=== PATIENT | female | born 1945 | race African-American/Black ===

== ENCOUNTER 2018-06-18 17:02 | Emergency (ER) | payer OTHER ==
[~2018-06-18] VITALS: Ht 162.6 cm; Wt 60.0 kg
[~2018-06-18 17:02] MED LIST: AMLO5TAB4 PO; CLON0.1T PO; metoprolol PO
[2018-06-18] MEDS: ACETAMINOPHEN 500MG TABLET PO ONE (17:26)
[2018-06-18 18:06] LABS: BASOPHILS % 0.6 % (0.0-2.0); EOSINOPHILS % 0.1 % (0.0-5.0); LYMPHOCYTES % 16.9 % (20.0-50.0); MEAN CORPUSCULAR HEMOGLOBIN 29.3 pg (28.0-32.0); MEAN CORPUSCULAR VOLUME 87.6 fL (81.0-99.0); MEAN PLATELET VOLUME 7.5 fl (7.4-10.4); MONOCYTES % 3.4 % (2.0-8.0); PLATELET 424 x1000/uL (130-400); RED BLOOD CELL COUNT 4.11 mill/uL (4.2-5.4); RED CELL DISTRIBUTION WIDTH 14.7 % (11.6-14.6)
[2018-06-18 18:10] LABS: CHLORIDE 98 mEq/L (98-107)
[2018-06-18] MEDS: HYDRALAZINE 20MG/ML VIAL IV ONE (18:52)
[2018-06-18 20:42] LABS: CLARITY URINE CLEAR (CLEAR); COLOR URINE YELLOW (YELLOW); KETONES URINE NEGATIVE (NEGATIVE); LEUKOCYTE ESTERASE URINE TRACE (NEGATIVE); NITRITE URINE NEGATIVE (NEGATIVE); OCCULT BLOOD URINE 2+ (NEGATIVE); PROTEIN URINE 2+ (NEGATIVE); SPECIFIC GRAVITY URINE 1.007 (1.005-1.030); UROBILINOGEN URINE 0.2 E.U./dL (0.2-1.0)
[2018-06-18 22:10] VITALS: BP 161/77
== END 2018-06-18 22:53 | disposition home or self-care (01) ==
LOC: ER 17:02
DX: E86.0 Dehydration (principal); I10 Essential (primary) hypertension; R79.89 Other specified abnormal findings of blood chemistry; E88.09 Other disorders of plasma-protein metabolism, not elsewhere classified; R00.1 Bradycardia, unspecified; M19.90 Unspecified osteoarthritis, unspecified site; Z88.5 Allergy status to narcotic agent; Z79.899 Other long term (current) drug therapy
CPT/HCPCS: 36415; 71045; 80053; 81003; 83880; 84484; 85025; 93005; 96374; 99285; J0360

== ENCOUNTER 2019-01-27 09:41 | Inpatient (IN) | payer OTHER ==
[~2019-01-27] VITALS: Ht 167.6 cm; Wt 68.0 kg
[2019-01-27] MEDS ORDERED: PIPERACILLIN/TAZ 3.375G PREMIX 50 ML IV ONE (10:00)
[2019-01-27] MEDS ORDERED: VANCOMYCIN 1 G PREMIX 200 ML IV ONE (10:00)
[2019-01-27 10:15] LABS: HEMATOCRIT. 33.7 % (36.0-48.0); HEMOGLOBIN. 10.5 g/dL (12.0-16.0); MEAN CORPUSCULAR HEMOGLOBIN 30.7 pg (28.0-32.0); MEAN CORPUSCULAR VOLUME 98.3 fL (81.0-99.0); MEAN PLATELET VOLUME 8.2 fl (7.4-10.4); PLATELET 375 x1000/uL (130-400); RED BLOOD CELL COUNT 3.43 mill/uL (4.2-5.4); RED CELL DISTRIBUTION WIDTH 18.2 % (11.6-14.6)
[2019-01-27 10:20] LABS: BG BASE EXCESS -20.2 mmol/L (-2.0-2.0); BG CARBOXYHEMOGLOBIN 0.2 % (0.5-1.5); BG DEOXYHEMOGLOBIN 4.9 % (0.0-5.0); BG FRACTION INSPIRED OXYGEN 100; BG HCO3 ACT 7.5 mmol/L (22.0-26.0); BG METHEMOGLOBIN 0.2 % (0.0-1.5); BG OXYGEN SATURATION 95.1 % (92.0-98.5); BG OXYHEMOGLOBIN 94.7 % (94.0-97.0); BG PCO2 23.6 mmHg (35.0-45.0); BG PH 7.119 (7.350-7.450); BG PO2 109.1 mmHg (75.0-100.0); BG SAMPLE SITE RIGHT RADIAL; BG TOTAL HEMOGLOBIN 10.9 g/dL (12.0-18.0); BG VENT MODE MASK - NRB
[2019-01-27 10:21] LABS: CHLORIDE 118 mEq/L (98-107)
[2019-01-27 10:22] LABS: INR 1.2; PROTHROMBIN TIME 11.8 sec (9.6-11.0)
[2019-01-27] MEDS ORDERED: SODIUM CHLORIDE 0.9% 1,000 ML IV ONE ×2 (10:32→11:29)
[2019-01-27 10:53] LABS: PLATELET ESTIMATE NORMAL
[2019-01-27 12:01] LABS: BG BASE EXCESS -18.6 mmol/L (-2.0-2.0); BG BILEVEL POS AIRWAY PRESSURE 15/5; BG CARBOXYHEMOGLOBIN 0.4 % (0.5-1.5); BG DEOXYHEMOGLOBIN 14.4 % (0.0-5.0); BG FRACTION INSPIRED OXYGEN 50; BG HCO3 ACT 8.4 mmol/L (22.0-26.0); BG METHEMOGLOBIN 0.4 % (0.0-1.5); BG OXYGEN SATURATION 85.5 % (92.0-98.5); BG OXYHEMOGLOBIN 84.8 % (94.0-97.0); BG PCO2 23.8 mmHg (35.0-45.0); BG PH 7.165 (7.350-7.450); BG SAMPLE SITE RIGHT RADIAL; BG VENT MODE MASK - BIPAP; BG VENT RATE 12 set
[2019-01-27] MEDS ORDERED: PROPOFOL 10MG/ML 100ML 100 ML IV ONE (12:15)
[2019-01-27] MEDS ORDERED: SUCCINYLCHOLINE CHLORIDE 200MG/10ML IV ONE (12:15)
[2019-01-27] MEDS ORDERED: ETOMIDATE 2MG/ML 10ML VIAL IV ONE (12:15)
[2019-01-27 13:19] LABS: CLARITY URINE CLOUDY (CLEAR); COLOR URINE DARK YELLOW (YELLOW); KETONES URINE TRACE (NEGATIVE); LEUKOCYTE ESTERASE URINE TRACE (NEGATIVE); NITRITE URINE NEGATIVE (NEGATIVE); OCCULT BLOOD URINE 2+ (NEGATIVE); PROTEIN URINE 1+ (NEGATIVE); SPECIFIC GRAVITY URINE 1.017 (1.005-1.030)
[2019-01-27] MEDS ORDERED: PROPOFOL 10MG/ML 100ML 100 ML IV PRN (13:45)
[2019-01-27] MEDS ORDERED: FUROSEMIDE 40MG/4ML VIAL IVP NR (14:00)
[2019-01-27] MEDS ORDERED: SODIUM BICARBONATE 8.4% 1 MEQ/ML 50ML SYR IV SCH (14:15)
[2019-01-27] MEDS ORDERED: PIPERACILLIN/TAZ 3.375G PREMIX 50 ML IV SCH (14:15)
[2019-01-27] MEDS: PANTOPRAZOLE SODIUM 40 MG/VIAL IV SCH (14:44)
[2019-01-27] MEDS ORDERED: DEXT 5%/0.45% NACL 1000ML 1,000 ML IV SCH (14:45)
[2019-01-27] MEDS ORDERED: GUAIFENESIN 200MG/10ML SUGAR FREE UDC PO PRN (14:45)
[2019-01-27] MEDS ORDERED: CLONIDINE 0.1MG TABLET PO PRN (14:45)
[2019-01-27] MEDS ORDERED: ACETAMINOPHEN 325MG TABLET PO PRN (14:45)
[2019-01-27] MEDS ORDERED: MAGNESIUM/ALUMINUM HYDROXIDE/SIMETHICONE 30ML UDC PO PRN (14:45)
[2019-01-27] MEDS ORDERED: ONDANSETRON HCL 4MG/2ML INJ IV PRN (14:45)
[2019-01-27] MEDS ORDERED: DOCUSATE SODIUM 100MG CAPSULE PO PRN (14:45)
[2019-01-27] MEDS ORDERED: SODIUM BICARBONATE 8.4% 1 MEQ/ML 50ML SYR IV NR (15:00)
[2019-01-27] MEDS ORDERED: ALBUMIN HUMAN 25GM/100ML (25%) IV NR (15:15)
[2019-01-27 15:18] LABS: BG BASE EXCESS -12.5 mmol/L (-2.0-2.0); BG CARBOXYHEMOGLOBIN 0.3 % (0.5-1.5); BG DEOXYHEMOGLOBIN 2.2 % (0.0-5.0); BG FRACTION INSPIRED OXYGEN 100; BG HCO3 ACT 12.7 mmol/L (22.0-26.0); BG METHEMOGLOBIN 0.2 % (0.0-1.5); BG OXYGEN SATURATION 97.8 % (92.0-98.5); BG OXYHEMOGLOBIN 97.3 % (94.0-97.0); BG PCO2 27.5 mmHg (35.0-45.0); BG PH 7.284 (7.350-7.450); BG PO2 133.4 mmHg (75.0-100.0); BG SAMPLE SITE RIGHT RADIAL; BG TIDAL VOLUME(mL) 450 mL; BG TOTAL HEMOGLOBIN 10.5 g/dL (12.0-18.0); BG VENT MODE VENT - A/C; BG VENT RATE 14 set
[2019-01-27 15:30] VITALS: BP 100/50
[2019-01-27] MEDS ORDERED: OMEP20CA10 MT (15:51)
[2019-01-27] MEDS ORDERED: HYDR2TAB7 PO (15:51)
[2019-01-27] MEDS ORDERED: DIPH25TA23 PO (15:51)
[2019-01-27] MEDS ORDERED: ALLO100T PO (15:51)
[2019-01-27 15:56] LABS: T4 FREE 1.4 ng/dL (0.76-1.46)
[2019-01-27 16:00] VITALS: BP 120/50
[2019-01-27 16:21] VITALS: BP 90/50
[2019-01-27 16:25] LABS: VITAMIN B12 SERUM >2000 pg/mL pg/mL (211-911)
[2019-01-27] MEDS ORDERED: SODIUM BICARBONATE 50 MEQ in DEXTROSE 5% WATER 1,000 ML IV ONE (16:30)
[2019-01-27] MEDS: IPRATROPIUM/ALBUTEROL 0.5-3(2.5)MG/3ML NEB HHN SCH ×2 (17:00→21:07)
[2019-01-27 17:32] VITALS: BP 112/60
[2019-01-27] MEDS: ENOXAPARIN 30MG/0.3ML SYR SUBCUT SCH (17:32)
[2019-01-27] MEDS: PIPERACILLIN/TAZ 2.25G PREMIX 50 ML IV SCH (17:32)
[2019-01-27 17:42] LABS: *AMPHETAMINES SCREEN URINE NEGATIVE (NEGATIVE); *BARBITURATES SCREEN URINE NEGATIVE (NEGATIVE); *BENZODIAZEPINES SCREEN URINE NEGATIVE (NEGATIVE)
[2019-01-27 17:43] LABS: *COCAINE SCREEN URINE NEGATIVE (NEGATIVE); CANNABINOID URINE SCREEN NEGATIVE (NEGATIVE); METHADONE URINE SCREEN NEGATIVE (NEGATIVE); OPIATES URINE SCREEN NEGATIVE (NEGATIVE); PHENCYCLIDINE URINE SCREEN NEGATIVE (NEGATIVE)
[2019-01-27 18:00] VITALS: BP 120/60
[2019-01-27] MEDS: MIDAZOLAM HCL 50 MG in DEXTROSE 5% WATER 40 ML IV PRN (21:01)
[2019-01-27] MEDS: LACTULOSE 20G/30ML UDC PO SCH (21:50)
[2019-01-27] MEDS ORDERED: VANCOMYCIN 750 MG PREMIX 150 ML IV SCH (22:00)
[2019-01-27] MEDS: FENTANYL CITRATE/PF 500 MCG in SODIUM CHLORIDE 0.9% 40 ML IV PRN (22:22)
[2019-01-28] VITALS (31 sets, daily range): BP systolic 87–121; BP diastolic 38–72
[2019-01-28] MEDS: IPRATROPIUM/ALBUTEROL 0.5-3(2.5)MG/3ML NEB HHN SCH ×6 (00:34→20:39)
[2019-01-28] MEDS: PIPERACILLIN/TAZ 2.25G PREMIX 50 ML IV SCH ×4 (00:58→17:00)
[2019-01-28] MEDS: MIDAZOLAM HCL 50 MG in DEXTROSE 5% WATER 40 ML IV PRN (04:36)
[2019-01-28 05:50] LABS: BASOPHILS % 0.8 % (0.0-2.0); EOSINOPHILS % 0.4 % (0.0-5.0); HEMATOCRIT. 27.2 % (36.0-48.0); HEMOGLOBIN. 8.6 g/dL (12.0-16.0); LYMPHOCYTES % 13.4 % (20.0-50.0); MEAN CORPUSCULAR VOLUME 98.1 fL (81.0-99.0); MEAN PLATELET VOLUME 9.6 fl (7.4-10.4); MONOCYTES % 2.5 % (2.0-8.0); NEUTROPHILS % 82.9 % (40.0-76.0); PLATELET 161 x1000/uL (130-400); RED BLOOD CELL COUNT 2.77 mill/uL (4.2-5.4); RED CELL DISTRIBUTION WIDTH 17.5 % (11.6-14.6)
[2019-01-28 05:59] LABS: CHLORIDE 116 mEq/L (98-107)
[2019-01-28 06:13] LABS: PHOSPHORUS 5.1 mg/dL (2.5-4.9)
[2019-01-28] MEDS: LACTULOSE 20G/30ML UDC PO SCH ×3 (06:46→21:26)
[2019-01-28 08:21] LABS: BG BASE EXCESS -7.8 mmol/L (-2.0-2.0); BG CARBOXYHEMOGLOBIN 0.3 % (0.5-1.5); BG DEOXYHEMOGLOBIN 10.1 % (0.0-5.0); BG FRACTION INSPIRED OXYGEN 80; BG HCO3 ACT 16.5 mmol/L (22.0-26.0); BG METHEMOGLOBIN 0.1 % (0.0-1.5); BG OXYGEN SATURATION 89.9 % (92.0-98.5); BG OXYHEMOGLOBIN 89.5 % (94.0-97.0); BG PCO2 29.4 mmHg (35.0-45.0); BG PH 7.367 (7.350-7.450); BG SAMPLE SITE RIGHT RADIAL; BG TIDAL VOLUME(mL) 450 mL; BG TOTAL HEMOGLOBIN 9.3 g/dL (12.0-18.0); BG VENT MODE VENT - A/C; BG VENT RATE 18 set
[2019-01-28] MEDS ORDERED: FUROSEMIDE 100MG/10ML VIAL IVP SCH (08:45)
[2019-01-28] MEDS ORDERED: ALBUMIN HUMAN 25GM/100ML (25%) IV SCH (08:45)
[2019-01-28] MEDS ORDERED: PANTOPRAZOLE SODIUM 40 MG/VIAL IV SCH (09:00)
[2019-01-28] MEDS: CITRIC ACID/SODIUM CITRATE SOLN 30ML UDC NG SCH ×4 (09:00→16:53)
[2019-01-28] MEDS ORDERED: FENTANYL CITRATE/PF 500 MCG in SODIUM CHLORIDE 0.9% 40 ML IV PRN (09:15)
[2019-01-28] MEDS: FENTANYL CITRATE/PF 500 MCG in SODIUM CHLORIDE 0.9% 40 ML IV PRN (09:33)
[2019-01-28] MEDS ORDERED: MAGNESIUM 2 G PREMIX 50 ML IV SCH (10:00)
[2019-01-28] MEDS: PANTOPRAZOLE SODIUM 40 MG/VIAL IV SCH (10:00)
[2019-01-28] MEDS: ENOXAPARIN 30MG/0.3ML SYR SUBCUT SCH (16:54)
[2019-01-28] MEDS: SODIUM BICARBONATE 50 MEQ in DEXTROSE 5% WATER 950 ML IV SCH (21:26)
[2019-01-29] VITALS (50 sets, daily range): BP systolic 58–131; BP diastolic 22–70
[2019-01-29] MEDS: PIPERACILLIN/TAZ 2.25G PREMIX 50 ML IV SCH ×4 (00:15→17:03)
[2019-01-29] MEDS: IPRATROPIUM/ALBUTEROL 0.5-3(2.5)MG/3ML NEB HHN SCH ×6 (00:54→20:29)
[2019-01-29] MEDS: LACTULOSE 20G/30ML UDC PO SCH ×3 (06:15→21:45)
[2019-01-29 06:22] LABS: CHLORIDE 115 mEq/L (98-107)
[2019-01-29 06:43] LABS: PHOSPHORUS 4.8 mg/dL (2.5-4.9)
[2019-01-29 06:44] LABS: CREATINE KINASE 156 IU/L (26-192)
[2019-01-29] MEDS ORDERED: ALBUMIN HUMAN 25GM/100ML (25%) IV NR (07:45)
[2019-01-29] MEDS ORDERED: FUROSEMIDE 100MG/10ML VIAL IVP NR (07:45)
[2019-01-29] MEDS: CITRIC ACID/SODIUM CITRATE SOLN 30ML UDC NG SCH ×3 (08:16→17:03)
[2019-01-29] MEDS: PANTOPRAZOLE SODIUM 40 MG/VIAL IV SCH (08:16)
[2019-01-29 08:28] LABS: BG BASE EXCESS -4.5 mmol/L (-2.0-2.0); BG CARBOXYHEMOGLOBIN 0.8 % (0.5-1.5); BG DEOXYHEMOGLOBIN 10.6 % (0.0-5.0); BG FRACTION INSPIRED OXYGEN 65; BG HCO3 ACT 20.3 mmol/L (22.0-26.0); BG METHEMOGLOBIN 0.4 % (0.0-1.5); BG OXYGEN SATURATION 89.3 % (92.0-98.5); BG OXYHEMOGLOBIN 88.2 % (94.0-97.0); BG PH 7.369 (7.350-7.450); BG SAMPLE SITE RIGHT RADIAL; BG TIDAL VOLUME(mL) 450 mL; BG TOTAL HEMOGLOBIN 7.9 g/dL (12.0-18.0); BG VENT MODE VENT - A/C; BG VENT RATE 18 set
[2019-01-29 09:05] LABS: BASOPHILS % 1.2 % (0.0-2.0); EOSINOPHILS % 0.8 % (0.0-5.0); HEMATOCRIT. 25.5 % (36.0-48.0); HEMOGLOBIN. 8.2 g/dL (12.0-16.0); MEAN CORPUSCULAR HEMOGLOBIN 30.7 pg (28.0-32.0); MEAN PLATELET VOLUME 8.5 fl (7.4-10.4); MONOCYTES % 2.5 % (2.0-8.0); NEUTROPHILS % 85.5 % (40.0-76.0); PLATELET 80 x1000/uL (130-400); RED BLOOD CELL COUNT 2.66 mill/uL (4.2-5.4); RED CELL DISTRIBUTION WIDTH 18.1 % (11.6-14.6)
[2019-01-29] MEDS: SODIUM BICARBONATE 50 MEQ in DEXTROSE 5% WATER 950 ML IV SCH (10:01)
[2019-01-29] MEDS: VANCOMYCIN 1 G PREMIX 200 ML IV SCH (13:05)
[2019-01-29] MEDS: METOCLOPRAMIDE HCL 10MG/2ML VIAL IV SCH ×2 (13:28→17:03)
[2019-01-29] MEDS: ENOXAPARIN 30MG/0.3ML SYR SUBCUT SCH (16:58)
[2019-01-29] MEDS: CEFEPIME 1,000 MG in DEXTROSE 5% WATER 50 ML IV SCH (21:45)
[2019-01-30] VITALS (81 sets, daily range): BP systolic 86–130; BP diastolic 55–77
[2019-01-30] MEDS: IPRATROPIUM/ALBUTEROL 0.5-3(2.5)MG/3ML NEB HHN SCH ×6 (00:21→20:09)
[2019-01-30] MEDS: METOCLOPRAMIDE HCL 10MG/2ML VIAL IV SCH ×4 (00:57→17:48)
[2019-01-30 05:46] LABS: BASOPHILS % 0.8 % (0.0-2.0); EOSINOPHILS % 0.7 % (0.0-5.0); HEMATOCRIT. 28.7 % (36.0-48.0); HEMOGLOBIN. 9.1 g/dL (12.0-16.0); LYMPHOCYTES % 8.1 % (20.0-50.0); MEAN CORPUSCULAR HEMOGLOBIN 30.3 pg (28.0-32.0); MEAN CORPUSCULAR VOLUME 95.1 fL (81.0-99.0); MEAN PLATELET VOLUME 9.7 fl (7.4-10.4); MONOCYTES % 3.1 % (2.0-8.0); NEUTROPHILS % 87.3 % (40.0-76.0); PLATELET 64 x1000/uL (130-400); RED BLOOD CELL COUNT 3.02 mill/uL (4.2-5.4); RED CELL DISTRIBUTION WIDTH 17.8 % (11.6-14.6)
[2019-01-30 05:49] LABS: PHOSPHORUS 4.4 mg/dL (2.5-4.9)
[2019-01-30] MEDS: LACTULOSE 20G/30ML UDC PO SCH ×3 (06:02→22:00)
[2019-01-30] MEDS: SODIUM BICARBONATE 50 MEQ in DEXTROSE 5% WATER 950 ML IV SCH (06:59)
[2019-01-30] MEDS ORDERED: FUROSEMIDE 40MG/4ML VIAL IVP NR (08:45)
[2019-01-30] MEDS ORDERED: ALBUMIN HUMAN 25GM/100ML (25%) IV NR (08:45)
[2019-01-30] MEDS ORDERED: POTASSIUM CHLORIDE INJ 40 MEQ in DEXT 5% WATER 250 ML IV SCH (09:00)
[2019-01-30 09:22] LABS: BG BASE EXCESS -2.4 mmol/L (-2.0-2.0); BG CARBOXYHEMOGLOBIN 0.5 % (0.5-1.5); BG DEOXYHEMOGLOBIN 6.4 % (0.0-5.0); BG HCO3 ACT 21.1 mmol/L (22.0-26.0); BG METHEMOGLOBIN 0.2 % (0.0-1.5); BG OXYGEN SATURATION 93.6 % (92.0-98.5); BG OXYHEMOGLOBIN 92.9 % (94.0-97.0); BG PCO2 31.2 mmHg (35.0-45.0); BG PH 7.448 (7.350-7.450); BG PO2 70.4 mmHg (75.0-100.0); BG SAMPLE SITE RIGHT RADIAL; BG TIDAL VOLUME(mL) 450 mL; BG TOTAL HEMOGLOBIN 8.6 g/dL (12.0-18.0); BG VENT MODE VENT - A/C; BG VENT RATE 18 set
[2019-01-30] MEDS: PANTOPRAZOLE SODIUM 40 MG/VIAL IV SCH (09:34)
[2019-01-30] MEDS: CITRIC ACID/SODIUM CITRATE SOLN 30ML UDC NG SCH ×3 (09:34→17:48)
[2019-01-30] MEDS ORDERED: KCL 20MEQ/100ML PREMIX 100 ML IV NR (15:00)
[2019-01-30] MEDS: ENOXAPARIN 30MG/0.3ML SYR SUBCUT SCH (16:00)
[2019-01-30] MEDS: CEFEPIME 1,000 MG in DEXTROSE 5% WATER 50 ML IV SCH (21:58)
[2019-01-31] VITALS (48 sets, daily range): BP systolic 102–149; BP diastolic 63–97
[2019-01-31] MEDS: VANCOMYCIN 1 G PREMIX 200 ML IV SCH (00:18)
[2019-01-31] MEDS: IPRATROPIUM/ALBUTEROL 0.5-3(2.5)MG/3ML NEB HHN SCH ×7 (00:52→23:46)
[2019-01-31 05:51] LABS: BASOPHILS % 0.7 % (0.0-2.0); EOSINOPHILS % 0.9 % (0.0-5.0); HEMATOCRIT. 27.2 % (36.0-48.0); HEMOGLOBIN. 8.4 g/dL (12.0-16.0); LYMPHOCYTES % 12.9 % (20.0-50.0); MEAN CORPUSCULAR HEMOGLOBIN 30.8 pg (28.0-32.0); MEAN CORPUSCULAR VOLUME 99.2 fL (81.0-99.0); MEAN PLATELET VOLUME 10.8 fl (7.4-10.4); NEUTROPHILS % 80.5 % (40.0-76.0); RED BLOOD CELL COUNT 2.74 mill/uL (4.2-5.4); RED CELL DISTRIBUTION WIDTH 18.3 % (11.6-14.6)
[2019-01-31] MEDS: METOCLOPRAMIDE HCL 10MG/2ML VIAL IV SCH ×4 (05:59→17:41)
[2019-01-31] MEDS: LACTULOSE 20G/30ML UDC PO SCH ×3 (06:00→22:55)
[2019-01-31] MEDS ORDERED: ALBUMIN HUMAN 25GM/100ML (25%) IV SCH (08:00)
[2019-01-31] MEDS ORDERED: FUROSEMIDE 100MG/10ML VIAL IVP SCH (08:10)
[2019-01-31] MEDS: PANTOPRAZOLE SODIUM 40 MG/VIAL IV SCH (08:32)
[2019-01-31] MEDS: CITRIC ACID/SODIUM CITRATE SOLN 30ML UDC NG SCH ×3 (08:32→17:40)
[2019-01-31] MEDS ORDERED: POTASSIUM CHLORIDE INJ 40 MEQ in DEXT 5% WATER 250 ML IV SCH (09:00)
[2019-01-31 09:18] LABS: BG BASE EXCESS -1.4 mmol/L (-2.0-2.0); BG CARBOXYHEMOGLOBIN 0.3 % (0.5-1.5); BG DEOXYHEMOGLOBIN 5.2 % (0.0-5.0); BG FRACTION INSPIRED OXYGEN 65; BG HCO3 ACT 22.3 mmol/L (22.0-26.0); BG METHEMOGLOBIN 0.3 % (0.0-1.5); BG OXYGEN SATURATION 94.8 % (92.0-98.5); BG OXYHEMOGLOBIN 94.2 % (94.0-97.0); BG PCO2 33.5 mmHg (35.0-45.0); BG PH 7.441 (7.350-7.450); BG PO2 77.5 mmHg (75.0-100.0); BG SAMPLE SITE RIGHT RADIAL; BG TIDAL VOLUME(mL) 450 mL; BG TOTAL HEMOGLOBIN 9.4 g/dL (12.0-18.0); BG VENT MODE VENT - A/C; BG VENT RATE 16 set
[2019-01-31 09:30] LABS: PLATELET 40 x1000/uL (130-400)
[2019-01-31] MEDS: METRONIDAZOLE 500 MG PREMIX 100 ML IV SCH ×2 (10:22→18:17)
[2019-01-31] MEDS: BLOOD SUGAR DIAGNOSTIC STRIP TEST SCH ×2 (12:13→17:41)
[2019-01-31] MEDS ORDERED: DEXTROSE 50% WATER 50ML SYRINGE IV PRN (12:15)
[2019-01-31] MEDS: INSULIN LISPRO (LOW DOSE) 100 UNITS/ML SUBCUT SCH ×2 (12:30→18:55)
[2019-01-31 13:15] LABS: HEPATITIS B SURFACE ANTIGEN NEGATIVE
[2019-01-31 13:43] LABS: HEPATITIS A AB IGM NEGATIVE (NEGATIVE)
[2019-01-31] MEDS: CEFEPIME 1,000 MG in DEXTROSE 5% WATER 50 ML IV SCH (21:00)
[2019-02-01] VITALS (62 sets, daily range): BP systolic 117–162; BP diastolic 66–103
[2019-02-01] MEDS: METOCLOPRAMIDE HCL 10MG/2ML VIAL IV SCH ×5 (00:17→23:10)
[2019-02-01] MEDS: INSULIN LISPRO (LOW DOSE) 100 UNITS/ML SUBCUT SCH ×5 (00:33→23:10)
[2019-02-01] MEDS: BLOOD SUGAR DIAGNOSTIC STRIP TEST SCH ×5 (00:42→23:10)
[2019-02-01] MEDS: METRONIDAZOLE 500 MG PREMIX 100 ML IV SCH ×3 (01:57→18:30)
[2019-02-01] MEDS: IPRATROPIUM/ALBUTEROL 0.5-3(2.5)MG/3ML NEB HHN SCH ×6 (03:55→23:57)
[2019-02-01 04:22] LABS: HIV SCREEN 4G Non Reactive (Non Reactive)
[2019-02-01] MEDS: LACTULOSE 20G/30ML UDC PO SCH ×3 (05:10→21:46)
[2019-02-01] MEDS ORDERED: FUROSEMIDE 100MG/10ML VIAL IVP SCH (08:00)
[2019-02-01 08:07] LABS: BG BASE EXCESS 3.6 mmol/L (-2.0-2.0); BG CARBOXYHEMOGLOBIN 0.3 % (0.5-1.5); BG DEOXYHEMOGLOBIN 7.1 % (0.0-5.0); BG FRACTION INSPIRED OXYGEN 65; BG HCO3 ACT 26.5 mmol/L (22.0-26.0); BG METHEMOGLOBIN 1.2 % (0.0-1.5); BG OXYGEN SATURATION 92.8 % (92.0-98.5); BG OXYHEMOGLOBIN 91.4 % (94.0-97.0); BG PCO2 33.5 mmHg (35.0-45.0); BG PH 7.516 (7.350-7.450); BG PO2 67.6 mmHg (75.0-100.0); BG SAMPLE SITE RIGHT RADIAL; BG TIDAL VOLUME(mL) 450 mL; BG TOTAL HEMOGLOBIN 9.9 g/dL (12.0-18.0); BG VENT MODE VENT - A/C; BG VENT RATE 16 set
[2019-02-01] MEDS ORDERED: POTASSIUM PHOS,M-BASIC-D-BASIC 15 MMOL in DEXT 5% WATER 245 ML IV SCH (09:00)
[2019-02-01 09:16] LABS: BASOPHILS % 1.4 % (0.0-2.0); HEMATOCRIT. 27.6 % (36.0-48.0); HEMOGLOBIN. 8.9 g/dL (12.0-16.0); LYMPHOCYTES % 12.3 % (20.0-50.0); MEAN CORPUSCULAR HEMOGLOBIN 30.3 pg (28.0-32.0); MEAN CORPUSCULAR VOLUME 94.2 fL (81.0-99.0); MEAN PLATELET VOLUME 9.1 fl (7.4-10.4); NEUTROPHILS % 79.3 % (40.0-76.0); RED BLOOD CELL COUNT 2.93 mill/uL (4.2-5.4)
[2019-02-01 09:22] LABS: PLATELET 30 x1000/uL (130-400)
[2019-02-01] MEDS: CITRIC ACID/SODIUM CITRATE SOLN 30ML UDC NG SCH ×3 (09:25→16:20)
[2019-02-01] MEDS: DEXTROSE 5% WATER 1,000 ML IV SCH (09:50)
[2019-02-01] MEDS: PANTOPRAZOLE SODIUM 40 MG/VIAL IV SCH (09:51)
[2019-02-01] MEDS: VANCOMYCIN 750 MG PREMIX 150 ML IV SCH (14:02)
[2019-02-01] MEDS ORDERED: POTASSIUM CHLORIDE INJ 40 MEQ in DEXT 5% WATER 250 ML IV SCH (15:00)
[2019-02-01] MEDS: CEFEPIME 1,000 MG in DEXTROSE 5% WATER 50 ML IV SCH (21:01)
[2019-02-02] VITALS (92 sets, daily range): BP systolic 88–141; BP diastolic 47–91
[2019-02-02] MEDS: METRONIDAZOLE 500 MG PREMIX 100 ML IV SCH ×3 (01:47→18:28)
[2019-02-02] MEDS: IPRATROPIUM/ALBUTEROL 0.5-3(2.5)MG/3ML NEB HHN SCH ×5 (03:38→20:20)
[2019-02-02 04:54] LABS: BASOPHILS % 1.2 % (0.0-2.0); EOSINOPHILS % 0.9 % (0.0-5.0); HEMATOCRIT. 28.8 % (36.0-48.0); HEMOGLOBIN. 9.1 g/dL (12.0-16.0); LYMPHOCYTES % 12.4 % (20.0-50.0); MEAN CORPUSCULAR HEMOGLOBIN 30.3 pg (28.0-32.0); MEAN CORPUSCULAR VOLUME 95.5 fL (81.0-99.0); MONOCYTES % 6.3 % (2.0-8.0); NEUTROPHILS % 79.2 % (40.0-76.0); RED BLOOD CELL COUNT 3.01 mill/uL (4.2-5.4); RED CELL DISTRIBUTION WIDTH 18.1 % (11.6-14.6)
[2019-02-02] MEDS: DEXTROSE 5% WATER 1,000 ML IV SCH (05:05)
[2019-02-02 05:12] LABS: PHOSPHORUS 3.1 mg/dL (2.5-4.9)
[2019-02-02] MEDS: INSULIN LISPRO (LOW DOSE) 100 UNITS/ML SUBCUT SCH ×3 (05:18→17:25)
[2019-02-02] MEDS: BLOOD SUGAR DIAGNOSTIC STRIP TEST SCH ×3 (05:18→17:25)
[2019-02-02] MEDS: LACTULOSE 20G/30ML UDC PO SCH ×3 (05:18→22:03)
[2019-02-02] MEDS: METOCLOPRAMIDE HCL 10MG/2ML VIAL IV SCH ×3 (05:18→17:25)
[2019-02-02] MEDS ORDERED: FUROSEMIDE 100MG/10ML VIAL IVP SCH (07:30)
[2019-02-02 07:31] LABS: PLATELET 32 x1000/uL (130-400)
[2019-02-02] MEDS: CITRIC ACID/SODIUM CITRATE SOLN 30ML UDC NG SCH ×3 (08:08→17:25)
[2019-02-02] MEDS: PANTOPRAZOLE SODIUM 40 MG/VIAL IV SCH (08:08)
[2019-02-02 08:46] LABS: BG BASE EXCESS -0.2 mmol/L (-2.0-2.0); BG CARBOXYHEMOGLOBIN 0.2 % (0.5-1.5); BG DEOXYHEMOGLOBIN 7.1 % (0.0-5.0); BG FRACTION INSPIRED OXYGEN 65; BG HCO3 ACT 23.2 mmol/L (22.0-26.0); BG METHEMOGLOBIN 0.1 % (0.0-1.5); BG OXYGEN SATURATION 92.9 % (92.0-98.5); BG OXYHEMOGLOBIN 92.6 % (94.0-97.0); BG PCO2 32.7 mmHg (35.0-45.0); BG PH 7.468 (7.350-7.450); BG SAMPLE SITE RIGHT RADIAL; BG TIDAL VOLUME(mL) 450 mL; BG TOTAL HEMOGLOBIN 9.6 g/dL (12.0-18.0); BG VENT MODE VENT - A/C; BG VENT RATE 16 set
[2019-02-02] MEDS: FENTANYL CITRATE/PF 500 MCG in SODIUM CHLORIDE 0.9% 40 ML IV PRN ×2 (12:08→23:06)
[2019-02-02] MEDS: CEFEPIME 1,000 MG in DEXTROSE 5% WATER 50 ML IV SCH (21:01)
[2019-02-02] MEDS: VANCOMYCIN 750 MG PREMIX 150 ML IV SCH (22:03)
[2019-02-03] VITALS (95 sets, daily range): BP systolic 79–125; BP diastolic 43–78
[2019-02-03] MEDS: METOCLOPRAMIDE HCL 10MG/2ML VIAL IV SCH ×4 (00:08→18:03)
[2019-02-03] MEDS: BLOOD SUGAR DIAGNOSTIC STRIP TEST SCH ×4 (00:08→18:02)
[2019-02-03] MEDS: INSULIN LISPRO (LOW DOSE) 100 UNITS/ML SUBCUT SCH ×4 (00:09→18:33)
[2019-02-03] MEDS: PHENYLEPHRINE 40 MG in DEXT 5% WATER 246 ML IV PRN (01:37)
[2019-02-03] MEDS: METRONIDAZOLE 500 MG PREMIX 100 ML IV SCH ×3 (02:04→18:04)
[2019-02-03] MEDS: DEXTROSE 5% WATER 1,000 ML IV SCH (03:07)
[2019-02-03] MEDS: IPRATROPIUM/ALBUTEROL 0.5-3(2.5)MG/3ML NEB HHN SCH ×5 (05:07→21:03)
[2019-02-03] MEDS: LACTULOSE 20G/30ML UDC PO SCH ×3 (05:23→21:55)
[2019-02-03 05:42] LABS: BASOPHILS % 1.2 % (0.0-2.0); EOSINOPHILS % 1.7 % (0.0-5.0); HEMATOCRIT. 26.6 % (36.0-48.0); HEMOGLOBIN. 8.3 g/dL (12.0-16.0); LYMPHOCYTES % 11.8 % (20.0-50.0); MEAN CORPUSCULAR HEMOGLOBIN 30.2 pg (28.0-32.0); MEAN CORPUSCULAR VOLUME 96.4 fL (81.0-99.0); NEUTROPHILS % 79.3 % (40.0-76.0); RED BLOOD CELL COUNT 2.76 mill/uL (4.2-5.4); RED CELL DISTRIBUTION WIDTH 18.5 % (11.6-14.6)
[2019-02-03 05:53] LABS: PHOSPHORUS 3.8 mg/dL (2.5-4.9)
[2019-02-03 08:31] LABS: PLATELET 57 x1000/uL (130-400)
[2019-02-03] MEDS: PANTOPRAZOLE SODIUM 40 MG/VIAL IV SCH (08:56)
[2019-02-03] MEDS: CITRIC ACID/SODIUM CITRATE SOLN 30ML UDC NG SCH ×3 (08:56→18:04)
[2019-02-03] MEDS ORDERED: KCL 20MEQ/100ML PREMIX 100 ML IV SCH (09:00)
[2019-02-03 09:10] LABS: BG BASE EXCESS 6.2 mmol/L (-2.0-2.0); BG CARBOXYHEMOGLOBIN 0.1 % (0.5-1.5); BG FRACTION INSPIRED OXYGEN 65; BG HCO3 ACT 30.3 mmol/L (22.0-26.0); BG METHEMOGLOBIN 0.1 % (0.0-1.5); BG OXYHEMOGLOBIN 98.8 % (94.0-97.0); BG PCO2 41.9 mmHg (35.0-45.0); BG PH 7.477 (7.350-7.450); BG PO2 169.8 mmHg (75.0-100.0); BG SAMPLE SITE RIGHT RADIAL; BG TIDAL VOLUME(mL) 450 mL; BG TOTAL HEMOGLOBIN 12.5 g/dL (12.0-18.0); BG VENT MODE VENT - A/C; BG VENT RATE 16 set
[2019-02-03] MEDS ORDERED: LORAZEPAM 2MG/ML CPJ IV NR (11:00)
[2019-02-03] MEDS ORDERED: KCL 20MEQ/100ML PREMIX 100 ML IV NR (14:00)
[2019-02-03] MEDS: FENTANYL CITRATE/PF 500 MCG in SODIUM CHLORIDE 0.9% 40 ML IV PRN (16:23)
[2019-02-03] MEDS: CEFEPIME 1,000 MG in DEXTROSE 5% WATER 50 ML IV SCH (21:55)
[2019-02-04] VITALS (91 sets, daily range): BP systolic 78–131; BP diastolic 27–76
[2019-02-04] MEDS: METOCLOPRAMIDE HCL 10MG/2ML VIAL IV SCH ×5 (00:09→23:11)
[2019-02-04] MEDS: BLOOD SUGAR DIAGNOSTIC STRIP TEST SCH ×5 (00:13→23:11)
[2019-02-04] MEDS: INSULIN LISPRO (LOW DOSE) 100 UNITS/ML SUBCUT SCH ×5 (00:16→23:11)
[2019-02-04] MEDS: IPRATROPIUM/ALBUTEROL 0.5-3(2.5)MG/3ML NEB HHN SCH ×6 (00:45→20:04)
[2019-02-04] MEDS: DEXTROSE 5% WATER 1,000 ML IV SCH ×2 (01:45→23:11)
[2019-02-04] MEDS: PHENYLEPHRINE 40 MG in DEXT 5% WATER 246 ML IV PRN (01:50)
[2019-02-04] MEDS: METRONIDAZOLE 500 MG PREMIX 100 ML IV SCH ×3 (02:18→18:28)
[2019-02-04] MEDS: LACTULOSE 20G/30ML UDC PO SCH ×2 (05:39→14:00)
[2019-02-04 05:48] LABS: BASOPHILS % 0.9 % (0.0-2.0); EOSINOPHILS % 1.5 % (0.0-5.0); HEMATOCRIT. 27.3 % (36.0-48.0); HEMOGLOBIN. 8.6 g/dL (12.0-16.0); LYMPHOCYTES % 9.7 % (20.0-50.0); MEAN CORPUSCULAR HEMOGLOBIN 30.6 pg (28.0-32.0); MONOCYTES % 7.9 % (2.0-8.0); RED BLOOD CELL COUNT 2.81 mill/uL (4.2-5.4); RED CELL DISTRIBUTION WIDTH 18.7 % (11.6-14.6)
[2019-02-04 06:50] LABS: PLATELET 66 x1000/uL (130-400)
[2019-02-04 07:02] LABS: PHOSPHORUS 3.7 mg/dL (2.5-4.9)
[2019-02-04] MEDS ORDERED: ALBUMIN HUMAN 25GM/100ML (25%) IV SCH (08:15)
[2019-02-04] MEDS ORDERED: FUROSEMIDE 100MG/10ML VIAL IVP NR (08:15)
[2019-02-04] MEDS ORDERED: LORAZEPAM 2MG/ML CPJ IM PRN (10:00)
[2019-02-04] MEDS: CITRIC ACID/SODIUM CITRATE SOLN 30ML UDC NG SCH ×2 (13:00→13:08)
[2019-02-04] MEDS: PANTOPRAZOLE SODIUM 40 MG/VIAL IV SCH (13:09)
[2019-02-04] MEDS: CEFEPIME 1,000 MG in DEXTROSE 5% WATER 50 ML IV SCH ×2 (14:09→14:13)
[2019-02-05] VITALS (69 sets, daily range): BP systolic 84–142; BP diastolic 47–103
[2019-02-05] MEDS: IPRATROPIUM/ALBUTEROL 0.5-3(2.5)MG/3ML NEB HHN SCH ×3 (00:12→07:53)
[2019-02-05] MEDS: METRONIDAZOLE 500 MG PREMIX 100 ML IV SCH ×2 (01:02→22:11)
[2019-02-05] MEDS: INSULIN LISPRO (LOW DOSE) 100 UNITS/ML SUBCUT SCH (05:25)
[2019-02-05] MEDS: METOCLOPRAMIDE HCL 10MG/2ML VIAL IV SCH (05:25)
[2019-02-05] MEDS: BLOOD SUGAR DIAGNOSTIC STRIP TEST SCH (05:25)
[2019-02-05 05:43] LABS: HEMATOCRIT. 24.5 % (36.0-48.0); HEMOGLOBIN. 7.5 g/dL (12.0-16.0); MEAN CORPUSCULAR HEMOGLOBIN 30.1 pg (28.0-32.0); MEAN CORPUSCULAR VOLUME 97.7 fL (81.0-99.0); MEAN PLATELET VOLUME 11.1 fl (7.4-10.4); RED CELL DISTRIBUTION WIDTH 19.7 % (11.6-14.6)
[2019-02-05 06:04] LABS: PHOSPHORUS 3.7 mg/dL (2.5-4.9)
[2019-02-05] MEDS ORDERED: HALOPERIDOL LACTATE 5MG/ML VIAL IM PRN (08:45)
[2019-02-05] MEDS ORDERED: LORAZEPAM 2MG/ML CPJ IM PRN (08:45)
[2019-02-05 09:48] LABS: PLATELET ESTIMATE DECREASED
[2019-02-05 09:49] LABS: PLATELET 56 x1000/uL (130-400)
[2019-02-05] MEDS ORDERED: MORPHINE SULFATE 100 MG in DEXT 5% WATER 90 ML IV PRN (10:00)
[2019-02-05] MEDS: IPRATROPIUM/ALBUTEROL 0.5-3(2.5)MG/3ML NEB HHN PRN (20:32)
[2019-02-05] MEDS ORDERED: METRONIDAZOLE 500 MG PREMIX 100 ML IV SCH (20:45)
[2019-02-05] MEDS ORDERED: ACETAMINOPHEN 325MG TABLET PO PRN (21:13)
[2019-02-05] MEDS ORDERED: DEXTROSE 50% WATER 50ML SYRINGE IV PRN (21:15)
[2019-02-05] MEDS ORDERED: PHENYLEPHRINE 40 MG in DEXT 5% WATER 246 ML IV PRN (22:00)
[2019-02-05] MEDS: CEFEPIME 1,000 MG in DEXTROSE 5% WATER 50 ML IV SCH (22:09)
[2019-02-05] MEDS: DEXT 5%/0.9% NACL 1,000 ML IV SCH (22:09)
[2019-02-05] MEDS ORDERED: CEFEPIME 1,000 MG in DEXTROSE 5% WATER 50 ML IV SCH (22:30)
[2019-02-06] VITALS (81 sets, daily range): BP systolic 48–156; BP diastolic 29–97
[2019-02-06] MEDS: METOCLOPRAMIDE HCL 10MG/2ML VIAL IV SCH ×4 (01:41→17:06)
[2019-02-06] MEDS ORDERED: LORAZEPAM 2MG/ML CPJ IV PRN (04:45)
[2019-02-06] MEDS: INSULIN LISPRO 100 UNITS/ML SUBCUT SCH ×4 (05:23→17:14)
[2019-02-06] MEDS: METRONIDAZOLE 500 MG PREMIX 100 ML IV SCH ×3 (05:23→21:38)
[2019-02-06] MEDS: BLOOD SUGAR DIAGNOSTIC STRIP TEST SCH ×4 (05:23→17:13)
[2019-02-06] MEDS ORDERED: FUROSEMIDE 100MG/10ML VIAL IVP SCH (08:15)
[2019-02-06 08:24] LABS: BG BASE EXCESS -0.2 mmol/L (-2.0-2.0); BG CARBOXYHEMOGLOBIN 0.6 % (0.5-1.5); BG DEOXYHEMOGLOBIN 3.5 % (0.0-5.0); BG FRACTION INSPIRED OXYGEN 70; BG HCO3 ACT 24.1 mmol/L (22.0-26.0); BG METHEMOGLOBIN 0.3 % (0.0-1.5); BG OXYGEN SATURATION 96.5 % (92.0-98.5); BG OXYHEMOGLOBIN 95.6 % (94.0-97.0); BG PCO2 37.6 mmHg (35.0-45.0); BG PH 7.425 (7.350-7.450); BG PO2 85.9 mmHg (75.0-100.0); BG SAMPLE SITE RIGHT RADIAL; BG TIDAL VOLUME(mL) 450 mL; BG TOTAL HEMOGLOBIN 8.1 g/dL (12.0-18.0); BG VENT MODE VENT - A/C; BG VENT RATE 16 set
[2019-02-06] MEDS: IPRATROPIUM/ALBUTEROL 0.5-3(2.5)MG/3ML NEB HHN PRN ×3 (08:49→20:19)
[2019-02-06 08:57] LABS: BASOPHILS % 1.4 % (0.0-2.0); EOSINOPHILS % 1.4 % (0.0-5.0); HEMATOCRIT. 24.7 % (36.0-48.0); HEMOGLOBIN. 7.7 g/dL (12.0-16.0); LYMPHOCYTES % 7.7 % (20.0-50.0); MEAN CORPUSCULAR HEMOGLOBIN 30.3 pg (28.0-32.0); MEAN PLATELET VOLUME 9.1 fl (7.4-10.4); NEUTROPHILS % 83.5 % (40.0-76.0); PLATELET 81 x1000/uL (130-400); RED BLOOD CELL COUNT 2.54 mill/uL (4.2-5.4); RED CELL DISTRIBUTION WIDTH 20.3 % (11.6-14.6)
[2019-02-06] MEDS: PANTOPRAZOLE SODIUM 40 MG/VIAL IV SCH (09:16)
[2019-02-06] MEDS ORDERED: POTASSIUM CHLORIDE INJ 40 MEQ in DEXT 5% WATER 250 ML IV NR (10:00)
[2019-02-06] MEDS ORDERED: VANCOMYCIN 1 G PREMIX 200 ML IV SCH (11:00)
[2019-02-06 11:16] LABS: INR 1.6; PARTIAL THROMBOPLASTIN TIME 57.2 sec (23.4-31.0); PROTHROMBIN TIME 16.3 sec (9.6-11.0)
[2019-02-06] MEDS: DEXT 5%/0.9% NACL 1,000 ML IV SCH (11:16)
[2019-02-06] MEDS: LORAZEPAM 2MG/ML CPJ IV PRN (17:06)
[2019-02-06] MEDS ORDERED: PHYTONADIONE 10MG/ML AMP SUBCUT SCH (18:50)
[2019-02-06] MEDS: CEFEPIME 1,000 MG in DEXTROSE 5% WATER 50 ML IV SCH (20:23)
[2019-02-06] MEDS: FUROSEMIDE 100MG/10ML VIAL IVP SCH (20:24)
[2019-02-06] MEDS ORDERED: PHYTONADIONE 10MG/ML AMP SUBCUT NR (22:15)
[2019-02-07] VITALS (106 sets, daily range): BP systolic 76–155; BP diastolic 33–96
[2019-02-07] MEDS: IPRATROPIUM/ALBUTEROL 0.5-3(2.5)MG/3ML NEB HHN PRN (00:03)
[2019-02-07] MEDS: METOCLOPRAMIDE HCL 10MG/2ML VIAL IV SCH ×4 (00:16→18:10)
[2019-02-07] MEDS: BLOOD SUGAR DIAGNOSTIC STRIP TEST SCH ×4 (00:16→18:09)
[2019-02-07] MEDS: INSULIN LISPRO 100 UNITS/ML SUBCUT SCH ×4 (06:00→18:00)
[2019-02-07] MEDS ORDERED: PHYTONADIONE 10MG/ML AMP SUBCUT NR (06:00)
[2019-02-07] MEDS: METRONIDAZOLE 500 MG PREMIX 100 ML IV SCH (06:43)
[2019-02-07 08:50] LABS: BASOPHILS % 1.2 % (0.0-2.0); EOSINOPHILS % 1.6 % (0.0-5.0); HEMATOCRIT. 29.4 % (36.0-48.0); HEMOGLOBIN. 9.7 g/dL (12.0-16.0); LYMPHOCYTES % 11.4 % (20.0-50.0); MEAN CORPUSCULAR HEMOGLOBIN 30.6 pg (28.0-32.0); MEAN CORPUSCULAR VOLUME 92.8 fL (81.0-99.0); MEAN PLATELET VOLUME 10.2 fl (7.4-10.4); MONOCYTES % 5.5 % (2.0-8.0); NEUTROPHILS % 80.3 % (40.0-76.0); PLATELET 72 x1000/uL (130-400); RED BLOOD CELL COUNT 3.17 mill/uL (4.2-5.4); RED CELL DISTRIBUTION WIDTH 19.2 % (11.6-14.6)
[2019-02-07] MEDS: FUROSEMIDE 100MG/10ML VIAL IVP SCH (08:53)
[2019-02-07 08:55] LABS: INR 1.4; PROTHROMBIN TIME 14.4 sec (9.6-11.0)
[2019-02-07 08:56] LABS: PHOSPHORUS 2.2 mg/dL (2.5-4.9)
[2019-02-07] MEDS: PANTOPRAZOLE SODIUM 40 MG/VIAL IV SCH (09:15)
[2019-02-07] MEDS ORDERED: SODIUM BICARBONATE 4% (2.4MEQ) 5ML VIAL IV ONE (09:31)
[2019-02-07] MEDS: LORAZEPAM 2MG/ML CPJ IV PRN (10:23)
[2019-02-07] MEDS ORDERED: MORPHINE SULFATE 4 MG/ML CPJ (NOT FOR IM USE) IV PRN (10:45)
[2019-02-07 11:00] LABS: BG BASE EXCESS 0.7 mmol/L (-2.0-2.0); BG CARBOXYHEMOGLOBIN 0.5 % (0.5-1.5); BG HCO3 ACT 25.2 mmol/L (22.0-26.0); BG METHEMOGLOBIN 0.4 % (0.0-1.5); BG OXYGEN SATURATION 87.9 % (92.0-98.5); BG OXYHEMOGLOBIN 87.1 % (94.0-97.0); BG PCO2 39.9 mmHg (35.0-45.0); BG PH 7.419 (7.350-7.450); BG PO2 55.5 mmHg (75.0-100.0); BG SAMPLE SITE RIGHT BRACHIAL; BG TIDAL VOLUME(mL) 450 mL; BG TOTAL HEMOGLOBIN 10.6 g/dL (12.0-18.0); BG VENT MODE VENT - A/C; BG VENT RATE 16 set
[2019-02-07] MEDS ORDERED: ALBUMIN HUMAN 12.5G/250ML (5%) IV SCH (11:00)
[2019-02-07] MEDS ORDERED: POTASSIUM CHLORIDE INJ 40 MEQ in DEXT 5% WATER 250 ML IV SCH (11:00)
[2019-02-07] MEDS ORDERED: MAGNESIUM 2 G PREMIX 50 ML IV SCH (11:15)
[2019-02-07] MEDS ORDERED: POTASSIUM PHOS,M-BASIC-D-BASIC 10 MMOL in DEXT 5% WATER 246.6667 ML IV ONE (12:00)
[2019-02-07] MEDS ORDERED: KCL 20MEQ/100ML PREMIX 100 ML IV ONE (16:00)
[2019-02-07] MEDS ORDERED: ROCURONIUM BROMIDE 10MG/ML VIAL 5ML IV ONE ×2 (16:23→17:02)
[2019-02-07] MEDS ORDERED: EPHEDRINE SULFATE 50MG/ML VIAL ONE (16:24)
[2019-02-07] MEDS ORDERED: DEXAMETHASONE 4MG/ML 1ML VIAL ONE (16:41)
[2019-02-07] MEDS ORDERED: MIDAZOLAM HCL 2 MG/2 ML VIAL ONE (16:56)
[2019-02-07] MEDS ORDERED: PHENYLEPHRINE HCL 10 MG/ML 1ML (IV VIAL) IV ONE (16:58)
[2019-02-07] MEDS: DEXT 5%/0.9% NACL 1,000 ML IV SCH (17:44)
[2019-02-08] VITALS (72 sets, daily range): BP systolic 76–132; BP diastolic 49–91
[2019-02-08] MEDS: METOCLOPRAMIDE HCL 10MG/2ML VIAL IV SCH ×4 (00:55→17:27)
[2019-02-08] MEDS: BLOOD SUGAR DIAGNOSTIC STRIP TEST SCH ×5 (00:59→23:44)
[2019-02-08] MEDS: DEXT 5%/0.9% NACL 1,000 ML IV SCH ×3 (04:08→23:34)
[2019-02-08 05:04] LABS: HEMATOCRIT. 29.5 % (36.0-48.0); HEMOGLOBIN. 9.8 g/dL (12.0-16.0); MEAN CORPUSCULAR HEMOGLOBIN 31.2 pg (28.0-32.0); MEAN CORPUSCULAR VOLUME 93.6 fL (81.0-99.0); MEAN PLATELET VOLUME 8.9 fl (7.4-10.4); PLATELET 109 x1000/uL (130-400); RED BLOOD CELL COUNT 3.15 mill/uL (4.2-5.4); RED CELL DISTRIBUTION WIDTH 19.4 % (11.6-14.6)
[2019-02-08 05:12] LABS: CHLORIDE 109 mEq/L (98-107)
[2019-02-08 05:16] LABS: PHOSPHORUS 3.3 mg/dL (2.5-4.9)
[2019-02-08] MEDS: INSULIN LISPRO 100 UNITS/ML SUBCUT SCH ×5 (06:00→23:44)
[2019-02-08] MEDS: PANTOPRAZOLE SODIUM 40 MG/VIAL IV SCH (08:19)
[2019-02-08 08:24] LABS: BG BASE EXCESS 3.4 mmol/L (-2.0-2.0); BG CARBOXYHEMOGLOBIN 0.3 % (0.5-1.5); BG FRACTION INSPIRED OXYGEN 50; BG HCO3 ACT 26.3 mmol/L (22.0-26.0); BG METHEMOGLOBIN 0.7 % (0.0-1.5); BG OXYGEN SATURATION 91.9 % (92.0-98.5); BG PCO2 33.5 mmHg (35.0-45.0); BG PH 7.512 (7.350-7.450); BG PO2 63.4 mmHg (75.0-100.0); BG SAMPLE SITE RIGHT RADIAL; BG TIDAL VOLUME(mL) 450 mL; BG TOTAL HEMOGLOBIN 10.1 g/dL (12.0-18.0); BG VENT MODE VENT - A/C; BG VENT RATE 16 set
[2019-02-08] MEDS ORDERED: FUROSEMIDE 100MG/10ML VIAL IVP SCH (09:00)
[2019-02-08 09:48] LABS: PLATELET ESTIMATE DECREASED
[2019-02-09] VITALS: BP 131/81
[2019-02-09] MEDS: METOCLOPRAMIDE HCL 10MG/2ML VIAL IV SCH (00:32)
[2019-02-09 01:00] VITALS: BP 133/84
[2019-02-09 01:15] VITALS: BP 135/75
[2019-02-09 01:30] VITALS: BP 135/83
== END 2019-02-09 01:58 | disposition short-term general hospital (02) | DRG 3 ==
LOC: ER 09:41 → EDBEDREQSVC 12:40 → MICUSO 13:09 → EDBEDREQ 13:11 → ENRESERV 14:15
PROVIDERS: ADMIT Internal Medicine; ATTEND Internal Medicine
PROC: 5A1955Z Respiratory Ventilation, Greater than 96 Consecutive Hours (ICD-10-PCS; 2019-01-27)
PROC: 02HV33Z Insertion of Infusion Device into Superior Vena Cava, Percutaneous Approach (ICD-10-PCS; 2019-01-27)
PROC: B548ZZA Ultrasonography of Superior Vena Cava, Guidance (ICD-10-PCS; 2019-01-27)
PROC: 5A09357 Assistance with Respiratory Ventilation, Less than 24 Consecutive Hours, Continuous Positive Airway Pressure (ICD-10-PCS; 2019-01-27)
PROC: 0BH17EZ Insertion of Endotracheal Airway into Trachea, Via Natural or Artificial Opening (ICD-10-PCS; 2019-01-27)
PROC: 0W9G3ZZ Drainage of Peritoneal Cavity, Percutaneous Approach (ICD-10-PCS; 2019-01-28)
PROC: 30233N1 Transfusion of Nonautologous Red Blood Cells into Peripheral Vein, Percutaneous Approach (ICD-10-PCS; 2019-02-06)
PROC: 0B110F4 Bypass Trachea to Cutaneous with Tracheostomy Device, Open Approach (ICD-10-PCS; principal; 2019-02-07)
PROC: 0GBJ0ZZ Excision of Thyroid Gland Isthmus, Open Approach (ICD-10-PCS; 2019-02-07)
PROC: 0W9G3ZZ Drainage of Peritoneal Cavity, Percutaneous Approach (ICD-10-PCS; 2019-02-07)
PROC: 30233K1 Transfusion of Nonautologous Frozen Plasma into Peripheral Vein, Percutaneous Approach (ICD-10-PCS; 2019-02-07)
PROC: 30233R1 Transfusion of Nonautologous Platelets into Peripheral Vein, Percutaneous Approach (ICD-10-PCS; 2019-02-07)
DX: A41.9 Sepsis, unspecified organism (principal); E43 Unspecified severe protein-calorie malnutrition; G92 Toxic encephalopathy; N17.0 Acute kidney failure with tubular necrosis; N18.6 End stage renal disease; J96.21 Acute and chronic respiratory failure with hypoxia; R65.21 Severe sepsis with septic shock; E87.0 Hyperosmolality and hypernatremia; E87.2 Acidosis; E87.1 Hypo-osmolality and hyponatremia; I13.2 Hypertensive heart and chronic kidney disease with heart failure and with stage 5 chronic kidney disease, or end stage renal disease; R18.8 Other ascites; B19.20 Unspecified viral hepatitis C without hepatic coma; K74.60 Unspecified cirrhosis of liver; K72.90 Hepatic failure, unspecified without coma; E78.5 Hyperlipidemia, unspecified; E83.42 Hypomagnesemia; R58 Hemorrhage, not elsewhere classified; D69.6 Thrombocytopenia, unspecified; E78.1 Pure hyperglyceridemia; Z66 Do not resuscitate; D63.8 Anemia in other chronic diseases classified elsewhere; I50.9 Heart failure, unspecified; E87.6 Hypokalemia; Z99.2 Dependence on renal dialysis; Z82.49 Family history of ischemic heart disease and other diseases of the circulatory system; Z78.1 Physical restraint status; Z88.6 Allergy status to analgesic agent; Z68.24 Body mass index [BMI] 24.0-24.9, adult; Z86.19 Personal history of other infectious and parasitic diseases; Z79.899 Other long term (current) drug therapy; L85.3 Xerosis cutis; Z85.048 Personal history of other malignant neoplasm of rectum, rectosigmoid junction, and anus; E83.39 Other disorders of phosphorus metabolism; N27.0 Small kidney, unilateral
CPT/HCPCS: 31500; 36415; 36569; 36600; 49083; 70551; 71045; 71250; 74018; 74176; 76705; 76770; 76937; 80048; 80061; 80202; 80305; 82040; 82105; 82140; 82270; 82375; 82550; 82607; 82746; 82805; 82962; 83036; 83540; 83550; 83605; 83735; 84100; 84132; 84145; 84300; 84439; 84443; 84478; 84484; 85384; 86022; 86705; 86709; 86803; 86850; 86900; 86920; 86927; 87070; 87106; 87340; 87389; 88108; 88312; 93005; 93306; 93970; 94003; 94640; 96365; 96368; 99291; C1725; C9113; J0330; J0692; J1100; J1650; J1815; J1940; J2060; J2250; J2270; J2370; J2543; J2704; J2765; J3010; J3370; J3430; J3475; J3480; J3490; J7030; J7040; J7042; J7050; J7060; J7070; J7620; P9016; P9017; P9034; P9041; P9047; A4315